=== PATIENT | female | born 1955 | race Hispanic/Latino ===

== ENCOUNTER → 2019-12-28 | Outpatient (CLI) | payer BC | END | disposition home or self-care (01) | LOC: RAH 15:13 | PROVIDERS: ATTEND Family Medicine | DX: Z12.31 Encounter for screening mammogram for malignant neoplasm of breast (principal) ==

== ENCOUNTER → 2022-03-07 | Outpatient (CLI) | payer OTHER | END | disposition home or self-care (01) | LOC: RAH 01:43 | PROVIDERS: ATTEND Family Medicine | DX: Z12.31 Encounter for screening mammogram for malignant neoplasm of breast (principal) | CPT/HCPCS: 77067 ==

== ENCOUNTER → 2024-08-12 | Outpatient (CLI) | payer OTHER ==
[~2024-08-12] MED LIST: AMLO-257 PO; APIX5TAB PO; ATOR20TA65 PO; GLIM4TAB36 PO; METO50 PO; PIOG1TAB21 PO; TELM80TA10 PO
--- NOTE | 2024-08-13 09:18 | HMCIMG ---
SCREENING MAMMOGRAM REASON: Annual Exam COMPARISON: 03/07/2022 TECHNIQUE: CC and MLO views of the bilateral breasts were performed.CAD was performed as well. FINDINGS: Parenchymal density: There are scattered areas of fibroglandular density. There are no focal mass lesions. There are no pathologic appearing calcifications. There is no evidence of architectural distortion or skin thickening. IMPRESSION: Normal screening mammogram The patient was entered into a reminder system with a target due date for their next mammogram. BI-RADS CATEGORY 1: NEGATIVE Recommend monthly self breast exam as well as annual clinical examination. A negative x-ray should not delay biopsy if a dominant or clinically suspicious mass is present, since 8-10% of cancers are not identified by mammography. Dense breasts particularly, may obscure an underlying neoplasm. Some of these may be detected clinically and therefore, clinical examination is an essential part of breast evaluation.
== END | disposition home or self-care (01) ==
LOC: RAH 12:03
PROVIDERS: ATTEND Family Medicine
DX: Z12.31 Encounter for screening mammogram for malignant neoplasm of breast (principal); R92.323 Mammographic fibroglandular density, bilateral breasts
CPT/HCPCS: 77067

== ENCOUNTER → 2025-03-22 | Outpatient (CLI) | payer OTHER ==
[~2025-03-22] MED LIST changes: +IOHEXOL-350 75 ML VIAL IV ONE; +PIOG1TAB PO; -PIOG1TAB21 PO
--- NOTE | 2025-03-24 11:40 | HMCIMG ---
EXAM: CT Abdomen and Pelvis without and with IV contrast CLINICAL HISTORY: Malignant carcinoid tumor of the duodenum. TECHNIQUE: Thin collimated axial CT images of the abdomen and pelvis were obtained with sagittal and coronal reformatted images also submitted. CT scan is done according to ALARA (As Low As Reasonably Achievable). CONTRAST: 75 cc. COMPARISON: None. FINDINGS: Unremarkable visualized lung parenchyma. No focal abnormality within the gallbladder, pancreas, spleen, or adrenals. Vascular calcification at the right renal hilum. A small 5 mm right renal cortical cyst. A small 6 mm left renal cortical cyst. Multiple target appearance lesions in both lobes of the liver measuring up to 5.4 cm, suggesting metastatic lesions. Mild circumferential wall thickening of the small and large bowel loops, more pronounced in the duodenum. Bowel loops are normal in caliber without evidence of obstruction or ileus. The appendix is normal. Incidental appendicolith. There is no abnormality within the urinary bladder. Status post hysterectomy. Abdominal and pelvic vessels are patent. No lymphadenopathy. No free fluid. There is no acute osseous abnormality. Multilevel thoracolumbar spondylosis. IMPRESSIONS: Multiple target appearance lesions in both lobes of the liver, suggesting metastatic lesions. Mild circumferential wall thickening of the small and large bowel loops, more pronounced in the duodenum. Infectious and/or inflammatory processes should be considered. /[place]
== END | disposition home or self-care (01) ==
LOC: RAH 08:25
PROVIDERS: ATTEND Internal Medicine Gastroenterology
DX: C7A.010 Malignant carcinoid tumor of the duodenum (principal); N28.1 Cyst of kidney, acquired; N28.89 Other specified disorders of kidney and ureter; K38.1 Appendicular concretions; K76.9 Liver disease, unspecified; M47.815 Spondylosis without myelopathy or radiculopathy, thoracolumbar region; Z90.710 Acquired absence of both cervix and uterus
CPT/HCPCS: 74178; Q9967